=== PATIENT | male | born 1965 | race Caucasian/White ===

== ENCOUNTER 2016-04-19 | Emergency (ER) | payer SELFPAY ==
--- NOTE | 2016-04-19 11:02 | ED Physician Documentation ---
PD HPI SKIN - Stated complaint Stated Complaint: LUMP ON HEAD - Chief complaint Chief Complaint: Wound - History obtained from History obtained from: Patient, Family - History of Present Illness Timing - onset: How many days ago (8) Timing - duration: Days (8) Timing - details: Gradual onset, Still present Location: Scalp, Neck Quality / character: Itchy, Painful, Vesicular, Crusted, Swelling Associated symptoms: No: Fever, Myalgias, Joint pain, Headache, Facial swelling , Dyspnea, Abd pain Contributing factors: Insect bite /sting Similar symptoms before: Has not had sx before Recently seen: Not recently seen - Additional information Additional information: 50 y/o male visiting from [place] has developed some pain in the back of the neck and lymph node swelling and he has now developed an area on the scalp on the right side that has swelling redness and small blisters and he has sharp shooting pains periodically that are brief and lancinating. He does have some skin rash as well that is separate and started about a week ago as well. Review of Systems Constitutional: reports: Fatigue. denies: Fever Eyes: denies: Decreased vision Ears: reports: Ear pain Nose: denies: Rhinorrhea / runny nose, Congestion Throat: denies: Sore throat Cardiac: denies: Chest pain / pressure, Palpitations Respiratory: denies: Dyspnea, Cough GI: denies: Abdominal Pain, Nausea, Vomiting : denies: Dysuria, Frequency Skin: reports: Rash Musculoskeletal: reports: Neck pain. denies: Back pain, Extremity pain PD PAST MEDICAL HISTORY - Past Medical History Past Medical History: No - Past Surgical History Past Surgical History: No - Present Medications Home Medications: Ambulatory Orders Medication Instructions Recorded Confirmed Acyclovir 800 mg PO 5XD #35 tablet 04/19/16 Permethrin 5% Cream [(None)] 30 applic TOP ONCE #1 tube 04/19/16 - Allergies Allergies/Adverse Reactions: Allergies Allergy/AdvReac Type Severity Reaction Status Date / Time meperidine HCl * Allergy Anxiety Verified 04/19/16 10:34 [From Demerol] morphine Allergy Anxiety Verified 04/19/16 10:34 - Social History Does the pt smoke?: No Smoking Status: Never smoker Does the pt drink ETOH?: Yes Does the pt have substance abuse?: No - Immunizations Immunizations are current?: Yes PD ED PE NORMAL - Vitals Vital signs reviewed: Yes (hypertensive) - General General: No acute distress, Well developed/nourished - HEENT HEENT: Atraumatic, PERRL, EOMI, Ears normal, Moist mucous membranes, Pharynx benign, Dentition benign, Other (On the scalp is an area about 2.5cm round erythematous with mildly swollen with surrounding vesicles consistent with zoster. No drainage or flutuance. ) - Neck Neck: Supple, no meningeal sign, No bony TTP, Other (There is shoddy adenopathy on the right mildly tender. ) - Cardiac Cardiac: RRR, No murmur - Respiratory Respiratory: No respiratory distress, Clear bilaterally - Abdomen Abdomen: Soft, Non tender - Back Back: No CVA TTP, No spinal TTP - Derm Derm: Normal color, Warm and dry, Other (Over the chest and abdomen are several small erythmatous plaques with excoriation of the margins. ) - Extremities Extremities: No deformity, No edema - Neuro Neuro: No motor deficit, No sensory deficit - Psych Psych: Normal mood, Normal affect Results - Vitals Vitals: Vital Signs - 24 hr 04/19/16 10:34 Temperature 36.5 C Heart Rate 63 Respiratory 22 Rate Blood Pressure 151/98 H O2 Saturation 96 Oxygen O2 Source Room air PD MEDICAL DECISION MAKING - ED course Complexity details: considered differential, d/w patient, d/w family ED course: 50 y/o male with a spot on the scalp that looks like shingles with confirming history. In addition the patient notes that about a month ago the couple [place] a [place] home and the first night they experienced itching and then washed the bedding. The patient now appears to have a skin rash consistent with scabies. Departure - Departure Disposition: 01 Home, Self Care Clinical Impression: Sarcoptes scabiei infestation Shingles Qualifiers: Herpes zoster complications: without complications Qualified Code(s): B02.9 - Zoster without complications Condition: Stable Instructions: ED Scabies, ED Shingles Follow-Up: Your, doctor [Other] Prescriptions: Permethrin 5% Cream [(None)] 30 applic TOP ONCE #1 tube Acyclovir 800 mg PO 5XD #35 tablet
== END 2016-04-19 11:16 | disposition home or self-care (01) ==
CPT/HCPCS: 99283